=== PATIENT | male | born 1940 | race Hispanic/Latino ===

== ENCOUNTER 2018-09-19 12:32 | Day surgery (SDC) | payer OTHER ==
[2018-09-19] MEDS ORDERED: Iodixanol 320 MG/ML 200 ML BOTTLE IV ONE (13:29)
[2018-09-19 13:36] VITALS: BMI 24.5
[2018-09-19] MEDS ORDERED: Midazolam 2 MG/2 ML VIAL ONE ×2 (13:40→13:45)
[2018-09-19] MEDS ORDERED: Morphine 4 MG/ML VIAL ONE (13:49)
[2018-09-19 14:17] LABS: VENOUS BLOOD GAS BASE EXCESS -4.5 mmol/L (0.0-2.0); VENOUS BLOOD GAS PCO2 36 mmHg (40-60); VENOUS BLOOD GAS PO2 27 mm/Hg (30-55); VENOUS BLOOD PH 7.36 (7.32-7.43)
[2018-09-19 14:23] LABS: VENOUS BLOOD GAS BASE EXCESS -4.7 mmol/L (0.0-2.0); VENOUS BLOOD GAS PCO2 33 mmHg (40-60); VENOUS BLOOD GAS PO2 28 mm/Hg (30-55); VENOUS BLOOD PH 7.38 (7.32-7.43)
[2018-09-19] MEDS ORDERED: Naloxone 0.4 mg/ml Inj (Adult) ONE (15:42)
--- NOTE | 2018-09-20 02:27 | CARDCATH ---
PROCEDURE DATE: 09/19/2018 INDICATIONS: Mr. Granger is a 77-year-old male with past medical history significant for hypertension, CHF, CAD status post PTCA stenting that was done in [place], who moved to [place] to live with his daughter. The patient had severe right sided failure with pulmonary hypertension and was being managed medically. He subsequently was admitted recently to [facility] with complaints of lower extremity pain and discomfort and severe shortness of breath. BNP was highly elevated. He underwent ischemic evaluation with a stress test which showed anteroseptal defect , ischemia in the LAD territory. He was therefore brought to the labor and delivery nurse for further evaluation and treatment of his pulmonary hypertension and heart failure with symptoms of ischemic chest pain. PROCEDURE PERFORMED: Complete heart catheterization with hemodynamics and saturations via 6-Lebanese right femoral arterial access, 7-Lebanese right femoral venous access, right and left heart catheterization with selective left and right coronary angiograms. ANGIOGRAPHIC FINDINGS: Left main is a large sized vessel which bifurcates into left anterior descending and left circumflex coronary artery. The left main has distal haziness with mild to moderate luminal narrowing at the bifurcation of the LAD, possible 40% to 50% distal left main disease. Left circumflex is the large sized vessel runs in the AV groove proximal and mid segments are patent. There is a stent in the mid left circumflex which is widely patent. Distal left circumflex has a mild to moderate 40% stenosis. Left anterior descending is a large sized vessel has a stent in the proximal segment which is widely patent. There is a de audie lesion proximal to the stent which has 75% luminal narrowing. LAD in the mid segment has a 65 % stenosis, gives off medium sized diagonal branch, right coronary artery is large sized vessel gives off the PDA, the proximal RCA has 40% stenosis. Left ventricular ejection fraction is about 45%. RIGHT HEART CATH FINDINGS: Right atrial mean pressure is 29 mmHg. RV pressure is 54/14. Pulmonary capillary wedge pressure was 28, PA pressure of 57/25. Using the Hakki equation cardiac output was calculated to be 2.62 and cardiac index was 1.42. PA saturation is 53.8. AO saturation 98.4 with a RA saturation of 58.8. IMPRESSION: Moderate left main with severe left anterior descending artery disease. Mild left ventricular systolic dysfunction. Low cardiac output. Elevated filling pressures. RECOMMENDATION: The patient needs revascularization of the LAD with further evaluation of left main, ionotropic support for low cardiac output. Vasodilators and RAAS modulators for heart failure. Keep patient on dual antiplatelet therapy. Vaughn Hardwick MD MTDRachel
[2018-09-20 12:12] VITALS: RESP 16; O2SAT 99
== END 2018-09-19 19:00 | disposition home or self-care (01) ==
LOC: C.CATHLAB 12:32
PROVIDERS: ATTEND Internal Medicine Interventional Cardiology
DX: I25.10 Atherosclerotic heart disease of native coronary artery without angina pectoris (principal); I11.0 Hypertensive heart disease with heart failure; I50.9 Heart failure, unspecified; I27.20 Pulmonary hypertension, unspecified; Z95.5 Presence of coronary angioplasty implant and graft